=== PATIENT | male | born 1990 | race Caucasian/White ===

== ENCOUNTER 2023-12-26 20:17 | Observation (INO) | payer OTHER ==
[2023-12-26 20:23] VITALS: BMI 23.0
[2023-12-26] MEDS ORDERED: ACETAMINOPHEN INJECTION 100 ML IVPB ONE (21:59)
[2023-12-26 22:04] LABS: BASO % 0.8 % (0-2.0); EOS % 4.5 % (0-4.5); HEMATOCRIT 47.3 % (35.4-49); LYMPH % 44.5 % (8-40); MCH 30.8 pg (25.7-33.7); MCHC 33.9 g/dl (32.0-35.9); MEAN CELL VOLUME 90.9 fl (80-96); MEAN PLT VOLUME 9.2 fl (7.5-11.1); MONO % 9.6 % (3.8-10.2); NEUT % 40.6 % (42.8-82.8); PLATELET COUNT 258 10^3/uL (134-434); RDW 13.6 % (11.9-15.9); WHITE BLOOD COUNT 8.5 K/mm3 (4.0-10.0)
[2023-12-26] MEDS: ACETAMINOPHEN 1000 MG/100 ML BAG IVPB ONE (22:04)
[2023-12-26 22:10] LABS: INR 1.03 (0.83-1.09)
[2023-12-26 22:13] LABS: ACTIVATED PTT 34.8 SECONDS (25.2-36.5)
[2023-12-26 22:22] LABS: POTASSIUM 4.1 mmol/L (3.5-5.1)
[2023-12-26 22:23] LABS: CALCIUM 9.4 mg/dL (8.5-10.1)
[2023-12-26 22:24] LABS: ALBUMIN 4.2 g/dl (3.4-5.0); BLOOD UREA NITROGEN 25.2 mg/dL (7-18)
[2023-12-26 22:27] LABS: CREATININE 0.9 mg/dL (0.55-1.3)
[2023-12-26 22:29] LABS: BILIRUBIN,TOTAL 0.5 mg/dL (0.2-1); TOT PROT 7.8 g/dl (6.4-8.2)
[2023-12-27 03:30] LABS: URINE APPEARANCE CLEAR; URINE BILIRUBIN NEGATIVE (NEGATIVE); URINE COLOR YELLOW; URINE GLUCOSE (UA) NEGATIVE (NEGATIVE); URINE KETONE NEGATIVE (NEGATIVE); URINE LEUK ESTERASE NEGATIVE (NEGATIVE); URINE NITRITE NEGATIVE (NEGATIVE); URINE PROTEIN NEGATIVE (NEGATIVE); URINE UROBILINOGEN 0.2 mg/dL (0.2-1.0)
[2023-12-27 03:38] LABS: COCAINE, UR NEGATIVE (NEGATIVE); METHADONE, UR NEGATIVE (NEGATIVE); OPIATES, URI NEGATIVE (NEGATIVE); PHENCYCLIDINE,URINE NEGATIVE (NEGATIVE); URINE BARBITURATES NEGATIVE (NEGATIVE); URINE BENZODIAZEPINES NEGATIVE (NEGATIVE)
[2023-12-27 03:51] LABS: URINE AMPHETAMINES NEGATIVE (NEGATIVE)
[2023-12-27 06:18] LABS: BASO % 0.6 % (0-2.0); EOS % 5.4 % (0-4.5); HEMOGLOBIN 14.7 GM/dL (11.7-16.9); LYMPH % 50.3 % (8-40); MCH 30.6 pg (25.7-33.7); MCHC 33.4 g/dl (32.0-35.9); MEAN CELL VOLUME 91.6 fl (80-96); MEAN PLT VOLUME 9.3 fl (7.5-11.1); MONO % 9.9 % (3.8-10.2); NEUT % 33.8 % (42.8-82.8); PLATELET COUNT 219 10^3/uL (134-434); RDW 13.3 % (11.9-15.9); WHITE BLOOD COUNT 6.2 K/mm3 (4.0-10.0)
[2023-12-27 06:33] LABS: POTASSIUM 3.9 mmol/L (3.5-5.1)
[2023-12-27 06:36] LABS: ALBUMIN 3.7 g/dl (3.4-5.0); CALCIUM 9.1 mg/dL (8.5-10.1); CHOLESTEROL 162 mg/dL (50-200)
[2023-12-27 06:37] LABS: LDL CHOLESTEROL (ONLY SJRH) 82 mg/dL (5-100); MAGNESIUM 1.7 mg/dL (1.8-2.4)
[2023-12-27 06:39] LABS: CREATININE 0.9 mg/dL (0.55-1.3); HDL CHOLESTEROL 61 mg/dL (40-60); PHOSPHOROUS 4.8 mg/dL (2.5-4.9)
[2023-12-27 06:41] LABS: BILIRUBIN,TOTAL 0.4 mg/dL (0.2-1); TOT PROT 6.7 g/dl (6.4-8.2)
[2023-12-27] MEDS ORDERED: MAGNESIUM OXIDE 400 MG TABLET (FP) ONE (08:28)
[2023-12-27] MEDS ORDERED: LISINOPRIL 10 MG TABLET ONE (08:29)
[2023-12-27] MEDS: MAGNESIUM OXIDE 400 MG TABLET (FP) PO ONE (08:45)
[2023-12-27] MEDS: LISINOPRIL 10 MG TABLET PO SCH (10:09)
[2023-12-27] MEDS: HYDROCHLOROTHIAZIDE 12.5 MG CAPSULE (FP) PO SCH (10:09)
[2023-12-27] MEDS ORDERED: ENOXAPARIN NA (PORCINE) 40 MG/0.4 ML DISP.SYRIN SQ ONE (10:15)
[2023-12-27] MEDS: ENOXAPARIN NA (PORCINE) 40 MG/0.4 ML DISP.SYRIN SQ SCH (10:21)
[2023-12-27 15:34] VITALS: BP 125/81; PULSE 77; RESP 16; TEMP 98
== END 2023-12-27 15:38 | disposition home or self-care (01) ==
LOC: JER 20:17 → JERBED 22:51
PROVIDERS: ADMIT Internal Medicine; ATTEND Nurse Practitioner Family
PROC: 3E033NZ Introduction of Analgesics, Hypnotics, Sedatives into Peripheral Vein, Percutaneous Approach (ICD-10-PCS; principal; 2023-12-26)
PROC: 3E023GC Introduction of Other Therapeutic Substance into Muscle, Percutaneous Approach (ICD-10-PCS; 2023-12-26)
DX: R07.89 Other chest pain (principal); I10 Essential (primary) hypertension
CPT/HCPCS: 36415; 71046-TC-FY; 80053; 80061; 80307; 81003; 82550; 82553; 83735; 84100; 84439; 84443; 84484; 85025; 85610; 85730; 93005; 93010; 93306-TC; 93351; 96372; 96374; 99285-25; G0378; J0131